=== PATIENT | female | born 1950 | race Caucasian/White ===

== ENCOUNTER → 2017-08-21 08:57 | Outpatient (CLI) | payer MEDICARE, SELFPAY ==
[2017-08-21 10:30] LABS: Absolute Lymphocyte Count 0.98 X10^3/ul (0.83-4.51); Absolute Neutrophil Count 1.9 X10^3/uL (2.0-7.7); Basophil# 0.02 X10^3/uL; Basophil% 0.6 % (0-1); Eosinophil# 0.08 X10^3/uL; Eosinophils% 2.5 % (0-5); Hematocrit 41.6 % (37-47); Hemoglobin 13.6 g/dl (12.0-15.0); Lymphocyte # 0.98 X10^3/ul (4.0); Lymphocyte % 30.1 % (19-41); Mean Corp Hgb Conc 32.7 g/gl (32-36); Mean Corpuscular Hgb 30.5 pg (27.0-32.0); Mean Corpuscular Volume 93.3 fL (81-99); Mean Platelet Vol. 9.4 fl (6.2-12.0); Monocyte# 0.29 X10^3/uL; Monocyte% 8.9 % (0-10); Neutrophil # 1.89 X10^3/uL (2.7-7.7); Neutrophil % 57.9 % (47-70); Platelet Count 171 K/mm3 (150-450); RBC Distribution Width SD 45.6 fl (35.1-43.9); Red Blood Count 4.46 M/mm3 (4.2-5.4); White Blood Count 3.3 K/mm3 (4.4-11.0)
[2017-08-21 10:44] LABS: POSITIVE COUNT NO; POSITIVE DIFFERENTIAL NO; POSITIVE MORPHOLOGY NO
[2017-08-21 10:52] LABS: ALB/GLOB Ratio 1.1 RATIO (0.9-2.4); AST(SGOT) 24 U/L (15-37); Alanine Aminotransfer ALT/SGPT 39 U/L (13-56); Albumin, Serum 3.5 g/dL (3.2-5.0); Alkaline Phosphatase 72 U/L (45-117); Anion Gap 6 (5-15); BUN 11 mg/dL (7-18); BUN/Creat Ratio 11.8 RATIO (10-20); Calcium,Total 8.9 mg/dL (8.5-10.1); Chloride 106 mmol/L (98-107); Creatinine, Serum 0.93 mg/dL (0.55-1.02); EST Glomerular Filtration Rate 63 mL/min (>60); Est Glom Filt Rate - Afr Amer 77 mL/min (>60); Globulin 3.1 g/dL (2.2-4.2); Glucose 124 mg/dL (74-106); Potassium 4.1 mmol/L (3.5-5.1); Protein, Total 6.6 g/dL (6.4-8.2); Sodium Level 144 mmol/L (136-145)
== END ==
PROVIDERS: Family Provider Family Medicine; PCP Family Medicine; Visit Provider Internal Medicine Rheumatology
DX: M06.4 Inflammatory polyarthropathy (principal); M15.9 Polyosteoarthritis, unspecified; M51.36 Other intervertebral disc degeneration, lumbar region; M50.30 Other cervical disc degeneration, unspecified cervical region; E78.5 Hyperlipidemia, unspecified
CPT/HCPCS: 36415; 80053; 85025

== ENCOUNTER → 2017-09-14 09:10 | Outpatient (CLI) | payer MEDICARE, SELFPAY ==
[2017-09-14 09:28] LABS: Erythrocyte Sedimentation Rate 6 mm/hr (0-30)
[2017-09-14 09:40] LABS: ALB/GLOB Ratio 1.1 RATIO (0.9-2.4); AST(SGOT) 25 U/L (15-37); Alanine Aminotransfer ALT/SGPT 41 U/L (13-56); Albumin, Serum 3.6 g/dL (3.2-5.0); Alkaline Phosphatase 78 U/L (45-117); Anion Gap 7 (5-15); BUN 16 mg/dL (7-18); BUN/Creat Ratio 18.6 RATIO (10-20); CRP < 2.90 mg/L (0.0-3.0); Calcium,Total 9.1 mg/dL (8.5-10.1); Chloride 106 mmol/L (98-107); Creatinine, Serum 0.86 mg/dL (0.55-1.02); EST Glomerular Filtration Rate 70 mL/min (>60); Est Glom Filt Rate - Afr Amer 85 mL/min (>60); Globulin 3.3 g/dL (2.2-4.2); Glucose 77 mg/dL (74-106); Lipase 310 U/L (73-393); Potassium 3.7 mmol/L (3.5-5.1); Protein, Total 6.9 g/dL (6.4-8.2); Sodium Level 142 mmol/L (136-145)
[2017-09-14 18:59] LABS: Absolute Lymphocyte Count 1.07 X10^3/ul (0.83-4.51); Absolute Neutrophil Count 2.8 X10^3/uL (2.0-7.7); Basophil# 0.02 X10^3/uL; Basophil% 0.4 % (0-1); Eosinophil# 0.05 X10^3/uL; Eosinophils% 1.1 % (0-5); Hematocrit 41.6 % (37-47); Hemoglobin 13.5 g/dl (12.0-15.0); Lymphocyte # 1.07 X10^3/ul (4.0); Lymphocyte % 23.7 % (19-41); Mean Corp Hgb Conc 32.5 g/gl (32-36); Mean Corpuscular Hgb 30.1 pg (27.0-32.0); Mean Corpuscular Volume 92.9 fL (81-99); Mean Platelet Vol. 9.9 fl (6.2-12.0); Monocyte# 0.55 X10^3/uL; Monocyte% 12.2 % (0-10); Neutrophil # 2.81 X10^3/uL (2.7-7.7); Neutrophil % 62.2 % (47-70); Platelet Count 170 K/mm3 (150-450); RBC Distribution Width SD 47.8 fl (35.1-43.9); Red Blood Count 4.48 M/mm3 (4.2-5.4); White Blood Count 4.5 K/mm3 (4.4-11.0)
[2017-09-14 19:04] LABS: POSITIVE COUNT NO; POSITIVE DIFFERENTIAL NO; POSITIVE MORPHOLOGY NO
== END ==
PROVIDERS: Visit Provider Family Medicine
DX: R10.30 Lower abdominal pain, unspecified (principal); R19.7 Diarrhea, unspecified
CPT/HCPCS: 80053; 83690; 85025; 85652; 86140

== ENCOUNTER → 2017-11-06 14:40 | Outpatient (CLI) | payer MEDICARE, SELFPAY ==
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
== END ==
PROVIDERS: Visit Provider Anesthesiology Pain Medicine
DX: M47.892 Other spondylosis, cervical region (principal); M50.30 Other cervical disc degeneration, unspecified cervical region; M48.02 Spinal stenosis, cervical region
CPT/HCPCS: 72040

== ENCOUNTER → 2017-12-28 07:53 | Outpatient (CLI) | payer MEDICARE, SELFPAY ==
[2017-12-28 10:05] LABS: Absolute Lymphocyte Count 1.48 X10^3/ul (0.83-4.51); Absolute Neutrophil Count 3.6 X10^3/uL (2.0-7.7); Basophil# 0.01 X10^3/uL; Basophil% 0.2 % (0-1); Eosinophil# 0.06 X10^3/uL; Eosinophils% 1.1 % (0-5); Hematocrit 44.3 % (37-47); Hemoglobin 14.2 g/dl (12.0-15.0); Lymphocyte # 1.48 X10^3/ul (4.0); Mean Corp Hgb Conc 32.1 g/gl (32-36); Mean Corpuscular Hgb 29.3 pg (27.0-32.0); Mean Corpuscular Volume 91.5 fL (81-99); Mean Platelet Vol. 9.6 fl (6.2-12.0); Monocyte# 0.57 X10^3/uL; Neutrophil # 3.57 X10^3/uL (2.7-7.7); Neutrophil % 62.7 % (47-70); Platelet Count 163 K/mm3 (150-450); RBC Distribution Width SD 47.1 fl (35.1-43.9); Red Blood Count 4.84 M/mm3 (4.2-5.4); White Blood Count 5.7 K/mm3 (4.4-11.0)
[2017-12-28 10:13] LABS: POSITIVE COUNT NO; POSITIVE DIFFERENTIAL NO; POSITIVE MORPHOLOGY NO
[2017-12-28 10:21] LABS: ALB/GLOB Ratio 1.2 RATIO (0.9-2.4); AST(SGOT) 17 U/L (15-37); Alanine Aminotransfer ALT/SGPT 38 U/L (13-56); Albumin, Serum 4.1 g/dL (3.2-5.0); Alkaline Phosphatase 79 U/L (45-117); Anion Gap 7 (5-15); BUN 19 mg/dL (7-18); BUN/Creat Ratio 21.5 RATIO (10-20); Calcium,Total 9.2 mg/dL (8.5-10.1); Chloride 105 mmol/L (98-107); Creatinine, Serum 0.88 mg/dL (0.55-1.02); EST Glomerular Filtration Rate 68 mL/min (>60); Est Glom Filt Rate - Afr Amer 82 mL/min (>60); Globulin 3.3 g/dL (2.2-4.2); Glucose 83 mg/dL (74-106); Protein, Total 7.4 g/dL (6.4-8.2); Sodium Level 141 mmol/L (136-145)
== END ==
PROVIDERS: Family Provider Family Medicine; PCP Family Medicine; Visit Provider Internal Medicine Rheumatology
DX: M06.4 Inflammatory polyarthropathy (principal); M15.9 Polyosteoarthritis, unspecified; M51.36 Other intervertebral disc degeneration, lumbar region; M50.30 Other cervical disc degeneration, unspecified cervical region; E78.5 Hyperlipidemia, unspecified
CPT/HCPCS: 36415; 80053; 85025

== ENCOUNTER 2018-01-02 18:23 | Emergency (ER) | payer MEDICARE, SELFPAY ==
[2018-01-02 18:23] VITALS: BP 156/76; PULSE 77; RESP 16; TEMP 36.2; O2SAT 99; BMI 30.2
[2018-01-02 20:15] LABS: Absolute Lymphocyte Count 1.37 X10^3/ul (0.83-4.51); Basophil# 0.01 X10^3/uL; Basophil% 0.2 % (0-1); Eosinophil# 0.05 X10^3/uL; Eosinophils% 0.8 % (0-5); Hematocrit 44.2 % (37-47); Lymphocyte # 1.37 X10^3/ul (4.0); Lymphocyte % 22.8 % (19-41); Mean Corp Hgb Conc 31.7 g/gl (32-36); Mean Corpuscular Volume 91.7 fL (81-99); Mean Platelet Vol. 9.5 fl (6.2-12.0); Monocyte# 0.61 X10^3/uL; Monocyte% 10.1 % (0-10); Neutrophil # 3.97 X10^3/uL (2.7-7.7); Neutrophil % 66.1 % (47-70); Platelet Count 169 K/mm3 (150-450); RBC Distribution Width SD 46.9 fl (35.1-43.9); Red Blood Count 4.82 M/mm3 (4.2-5.4)
[2018-01-02 20:22] LABS: Anion Gap 8 (5-15); BUN 16 mg/dL (7-18); BUN/Creat Ratio 16.5 RATIO (10-20); Chloride 108 mmol/L (98-107); Creatinine, Serum 0.97 mg/dL (0.55-1.02); EST Glomerular Filtration Rate 61 mL/min (>60); Est Glom Filt Rate - Afr Amer 73 mL/min (>60); Estimated Creatinine Clearance 41.89 ml/min; Glucose 97 mg/dL (74-106); Potassium 4.2 mmol/L (3.5-5.1); Sodium Level 143 mmol/L (136-145)
[2018-01-02 20:24] LABS: POSITIVE COUNT NO; POSITIVE DIFFERENTIAL NO; POSITIVE MORPHOLOGY NO
[2018-01-02] MEDS: Dicyclomine 10 MG Capsule 20 MG PO (20:24)
[2018-01-02] MEDS: Ondansetron 4 MG/2 ML Vial IV (20:24)
[2018-01-02] MEDS: 0.9% Normal Saline 1,000 ML 150 ML IV (20:24)
[2018-01-02 20:26] VITALS: BP 127/87; PULSE 67; RESP 16; O2SAT 98
[2018-01-02 20:26] LABS: Mucous, Urine 0 SEEN /hpf (<or=2+)
[2018-01-02 20:29] LABS: Color, Urine Yellow (Yellow); Glucose, Dipstick Normal (Normal); Ketone-Dipstick Negative (Negative); Leukocyte Esterase-Dipstick 100 /ul (Negative); Nitrite-Dipstick Negative (Negative); Occult Blood-Urine 25 /ul (Negative); Protein-Dipstick Negative (Negative); Urine Bilirubin Dipstick Negative (Negative); Urine Clarity Clear (Clear); Urine Urobilinogen Normal (Normal)
[2018-01-02 20:51] LABS: Red Blood Cells-Urine 0-5 SEEN /hpf (0-5); Squamous Epithelial Cells - UA 0-5 SEEN /hpf (5-10); White Blood Cells 5-10 SEEN /hpf (0-5)
[2018-01-02 20:52] LABS: Bacteria RARE /hpf (None Seen)
[2018-01-02 22:37] VITALS: BP 120/72; PULSE 69; RESP 16; O2SAT 97
--- NOTE | 2018-01-02 23:07 | ED.VISSUMM ---
- ER Visit Summary Date of Service: 01/02/18 Chief Complaint: Abdominal pain, diarrhea History of Present Illness: The patient is a 67 F with generalized abdominal pain which she describes as aching and cramping for the past 4 days. She reports some mild nausea. She has had diarrhea for the past 4 days as well, nonbloody. Patient states she has hot flashes but she does not believe she is having true fevers. She has not had recent antibiotics or travel. She has not been camping. Physical Examination: Vital signs are unremarkable. Patient sitting upright in bed no acute distress. She is nontoxic appearing. Head and neck examination is unremarkable. Heart is regular rate and rhythm. Lung sounds are clear. Abdomen is soft with minimal diffuse tenderness. No guarding or rebound. Hypoactive bowel sounds noted throughout. Test Results: CBC and chemistry studies normal. Urinalysis does show 5-10 white cells with rare bacteria. Emergency Department Course and Treatment: Patient is given IV fluids, Zofran, and Bentyl. On repeat evaluation she does have some improvement in her symptoms. I advised the patient she does have changes consistent with cystitis. This can trigger diarrhea. She be treated with 3 day course of Bactrim. She will also be written for Zofran, Bentyl, and Imodium. If her symptoms worsen, she develops bloody diarrhea, vomiting, or fever she is to return for repeat evaluation. Treatment Plan: [] Disposition: Discharge Impression: 1. Diarrhea 2. Cystitis This note was generated with [employer], [employer] dictation software. It may contain incorrect words, spelling, and punctuation that were not noted in review of the chart prior to signing ED Disposition - Plan for ED Patient: Disposition: Home or Assisted Living Chief Complaint: Abd Pain Instructions: ED Diarrhea Viral, ED UTI Cystitis Female Prescriptions: Loperamide [Imodium] 2 mg PO Q6H PRN PRN #14 capsule PRN Reason: Diarrhea Ondansetron [Zofran Odt] 4 mg PO Q8H PRN PRN #10 tablet PRN Reason: Nausea Dicyclomine HCl [Bentyl] 20 mg PO TIDAC #20 capsule Smz/Tmp Ds [Bactrim Ds] 1 tablet PO BID #6 tablet Referrals: Baljinder Mckenna MD [Primary Care Provider] - 5-7 Days
[2018-01-02] MEDS: Ondansetron ODT 4 MG Tablet PO (23:23)
[2018-01-02] MEDS: Smz/Tmp Ds Tablet 1 TABLET PO (23:23)
== END 2018-01-02 23:26 | disposition home or self-care (01) ==
PROVIDERS: Emergency Provider Emergency Medicine; Family Provider Family Medicine; PCP Family Medicine
DX: N30.20 Other chronic cystitis without hematuria (principal); B96.89 Other specified bacterial agents as the cause of diseases classified elsewhere; R19.7 Diarrhea, unspecified; E78.00 Pure hypercholesterolemia, unspecified; Z79.899 Other long term (current) drug therapy
CPT/HCPCS: 80048; 81001; 85025; 96361; 96374; 99284; J7030; J2405

== ENCOUNTER → 2018-06-24 11:20 | Outpatient (CLI) | payer MEDICARE, SELFPAY ==
[2018-06-24 11:47] LABS: Amphetamine Urine VISTA NEGATIVE (<1000 ng/mL); Barbiturate Urine VISTA NEGATIVE (< 200 ng/mL); Benzodiazepine Urine VISTA NEGATIVE (< 200 ng/mL); Cocaine Urine VISTA NEGATIVE (< 300 ng/mL); Ecstacy Urine VISTA NEGATIVE (< 500 ng/mL); Methadone Urine VISTA NEGATIVE (< 300 ng/mL); PCP Urine VISTA NEGATIVE (< 25 ng/mL); THC Urine VISTA NEGATIVE (< 50 ng/mL); Vista UDS pH Range 5
== END ==
PROVIDERS: Family Provider Family Medicine; PCP Family Medicine; Referring Provider Anesthesiology Pain Medicine; Visit Provider Anesthesiology Pain Medicine
DX: F11.20 Opioid dependence, uncomplicated (principal)
CPT/HCPCS: 80307

== ENCOUNTER → 2018-12-13 07:18 | Outpatient (CLI) | payer MEDICARE, SELFPAY ==
[2018-12-13 10:25] LABS: Erythrocyte Sedimentation Rate 5 mm/hr (0-30)
[2018-12-13 10:27] LABS: Absolute Lymphocyte Count 1.26 X10^3/uL (0.83-4.51); Absolute Neutrophil Count 2.3 X10^3/uL (2.0-7.7); Basophil# 0.03 X10^3/uL; Basophil% 0.7 % (0-1); Eosinophils% 2.4 % (0-5); Hematocrit 45.9 % (37-47); Hemoglobin 14.7 g/dL (12.0-15.0); Lymphocyte # 1.26 X10^3/ul (4.0); Lymphocyte % 30.3 % (19-41); Mean Corpuscular Hgb 29.8 pg (27.0-32.0); Mean Corpuscular Volume 93.1 fL (81-99); Mean Platelet Vol. 9.6 fl (6.2-12.0); Monocyte# 0.44 X10^3/uL; Monocyte% 10.6 % (0-10); NRBC Flagged by Analyzer 0 % (0-5); Neutrophil # 2.32 X10^3/uL (2.7-7.7); Neutrophil % 55.8 % (47-70); Platelet Count 159 K/mm3 (150-450); RBC Distribution Width CV 12.1 % (11.6-14.6); Red Blood Count 4.93 M/mm3 (4.2-5.4); White Blood Count 4.2 K/mm3 (4.4-11.0)
[2018-12-13 10:46] LABS: AST(SGOT) 25 U/L (15-37); Alanine Aminotransfer ALT/SGPT 35 U/L (13-56); Albumin, Serum 3.6 g/dL (3.2-5.0); Alkaline Phosphatase 88 U/L (45-117); Anion Gap 5 (5-15); BUN 10 mg/dL (7-18); BUN/Creat Ratio 12.7 RATIO (10-20); CRP < 2.90 mg/L (0.0-3.0); Calcium,Total 9.2 mg/dL (8.5-10.1); Chloride 107 mmol/L (98-107); Creatinine, Serum 0.79 mg/dL (0.55-1.02); EST Glomerular Filtration Rate 77 mL/min (>60); Est Glom Filt Rate - Afr Amer 93 mL/min (>60); Globulin 3.5 g/dL (2.2-4.2); Glucose 84 mg/dL (74-106); Potassium 4.3 mmol/L (3.5-5.1); Protein, Total 7.1 g/dL (6.4-8.2); Sodium Level 143 mmol/L (136-145)
== END ==
PROVIDERS: Family Provider Family Medicine; PCP Family Medicine; Referring Provider Internal Medicine Rheumatology; Visit Provider Internal Medicine Rheumatology
DX: M06.4 Inflammatory polyarthropathy (principal); M15.9 Polyosteoarthritis, unspecified; M51.36 Other intervertebral disc degeneration, lumbar region; M50.30 Other cervical disc degeneration, unspecified cervical region; E78.5 Hyperlipidemia, unspecified
CPT/HCPCS: 36415; 80053; 85025; 85652; 86140

== ENCOUNTER → 2019-05-13 14:18 | Outpatient (CLI) | payer MEDICARE, SELFPAY ==
[2019-05-13 15:24] LABS: Absolute Lymphocyte Count 1.51 X10^3/uL (0.83-4.51); Absolute Neutrophil Count 2.4 X10^3/uL (2.0-7.7); Basophil# 0.03 X10^3/uL; Basophil% 0.7 % (0-1); Eosinophil# 0.06 X10^3/uL; Eosinophils% 1.4 % (0-5); Hematocrit 45.6 % (37-47); Hemoglobin 14.6 g/dL (12.0-15.0); Lymphocyte # 1.51 X10^3/ul (4.0); Lymphocyte % 34.5 % (19-41); Mean Corpuscular Hgb 30.4 pg (27.0-32.0); Mean Platelet Vol. 9.3 fl (6.2-12.0); Monocyte# 0.33 X10^3/uL; Monocyte% 7.5 % (0-10); NRBC Flagged by Analyzer 0 % (0-5); Neutrophil # 2.44 X10^3/uL (2.7-7.7); Neutrophil % 55.7 % (47-70); Platelet Count 147 K/mm3 (150-450); RBC Distribution Width SD 42.5 fl (35.1-43.9); White Blood Count 4.4 K/mm3 (4.4-11.0)
[2019-05-13 15:57] LABS: ALB/GLOB Ratio 1.2 RATIO (0.9-2.4); AST(SGOT) 18 U/L (15-37); Alanine Aminotransfer ALT/SGPT 40 U/L (13-56); Albumin, Serum 3.7 g/dL (3.2-5.0); Alkaline Phosphatase 73 U/L (45-117); Anion Gap 3 (5-15); BUN 13 mg/dL (7-18); BUN/Creat Ratio 14.5 RATIO (10-20); Calcium,Total 8.8 mg/dL (8.5-10.1); Chloride 107 mmol/L (98-107); EST Glomerular Filtration Rate 66 mL/min (>60); Est Glom Filt Rate - Afr Amer 80 mL/min (>60); Globulin 3.1 g/dL (2.2-4.2); Glucose 138 mg/dL (74-106); Potassium 3.6 mmol/L (3.5-5.1); Protein, Total 6.8 g/dL (6.4-8.2); Sodium Level 140 mmol/L (136-145)
== END ==
PROVIDERS: Family Provider Family Medicine; PCP Family Medicine; Referring Provider Internal Medicine Rheumatology; Visit Provider Internal Medicine Rheumatology
DX: M06.4 Inflammatory polyarthropathy (principal); M15.9 Polyosteoarthritis, unspecified; M51.36 Other intervertebral disc degeneration, lumbar region; M50.30 Other cervical disc degeneration, unspecified cervical region; E78.5 Hyperlipidemia, unspecified
CPT/HCPCS: 36415; 80053; 85025

== ENCOUNTER → 2019-07-18 10:10 | Outpatient (CLI) | payer MEDICARE, SELFPAY ==
--- NOTE | 2019-07-18 | LES_PTH ---
PATIENT: SONI LOGAN LOC: [facility] U#:[id number] AGE/SX: 74/F ROOM: RE07/18/[address]: Dr. Chasity Wagner MD : [id number] BED: DIS: SPEC #: [id number] RECD: 07/22/19 10:10 STATUS: LIZBET LAVON #: [id number] [place]: 07/18/19 00:[address]: Chasity Wagner DEPT: SURGICAL PATHOLOGY RECD BY: Susannah Carmona ENTERED: 07/22/19 10:51 SP TYPE: Lesion OTHR DR: Dr. 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 AM:kiesha 07/23/19 MICROSCOPIC DESCRIPTION Slides are reviewed. GROSS DESCRIPTION Received in fixative is one container labeled with the patient's name and designated RLL. The specimen consists of a piece of carter-white skin measuring 0.4 x 0.3 x 0.2 cm. The entire specimen is submitted in one cassette. / SJ:kiesah 07/22/19 TC:1 CPT: 67954
== END ==
PROVIDERS: PCP Family Medicine; Referring Provider Family Medicine; Visit Provider Family Medicine
DX: H02.9 Unspecified disorder of eyelid (principal)
CPT/HCPCS: 88305

== ENCOUNTER → 2019-10-21 10:41 | Outpatient (CLI) | payer MEDICARE, SELFPAY ==
[2019-10-21 11:22] LABS: Amphetamine Urine VISTA NEGATIVE (<1000 ng/mL); Barbiturate Urine VISTA NEGATIVE (< 200 ng/mL); Benzodiazepine Urine VISTA NEGATIVE (< 200 ng/mL); Cocaine Urine VISTA NEGATIVE (< 300 ng/mL); Ecstacy Urine VISTA NEGATIVE (< 500 ng/mL); Methadone Urine VISTA NEGATIVE (< 300 ng/mL); PCP Urine VISTA NEGATIVE (< 25 ng/mL); THC Urine VISTA NEGATIVE (< 50 ng/mL); Vista UDS pH Range 5
== END ==
PROVIDERS: PCP Family Medicine; Referring Provider Anesthesiology Pain Medicine; Visit Provider Anesthesiology Pain Medicine
DX: F11.20 Opioid dependence, uncomplicated (principal)
CPT/HCPCS: 80307

== ENCOUNTER 2020-02-27 10:51 | Emergency (ER) | payer MEDICARE, SELFPAY ==
[2020-02-27 10:52] VITALS: BP 189/106; PULSE 73; RESP 16; TEMP 36.4; O2SAT 99; BMI 30.8
--- NOTE | 2020-02-27 11:39 | ED.DCSUM_ITS ---
History of Present Illness Chief Complaint: Hypertension Detail of Chief Complaint: Retro-orbital pain, frequency and dizziness Informant: Patient Onset: Yesterday Context: Sudden Onset Timing: Intermittent Quality: Orbital pain, orthostatic and frequency Location: Multiple Current Severity: - - The retro-orbital pain has resolved. The frequency has not. The orthostatic symptoms have not. Maximum Severity: Severe Worsened by: Orthostatic symptoms Relieved by: Nothing Associated Symptoms: No constitutional symptoms Narrative: Patient is a 69-year-old woman who presents because of retro-orbital eye pain yesterday. Denies photophobia. Denies headache. Denies neck pain or neck stiffness. She denies paresthesia, anesthesia or motor weakness. She denies rhinorrhea. She has mild congestion. She denies sore throat. Denies cough or shortness of breath. She denies nausea, vomiting diarrhea. She does report frequency without urgency, hematuria or dysuria. She has not noted a rash. She states she had problems walking when she was lightheaded with standing. She denies vertigo. She denies trouble with speech or swallowing. She denies cardiac or respiratory symptoms. Prior similar symptoms: No Recent Illness/Hospitalization: No - Past Medical History (1) Lumbosacral spondylolysis Status: Chronic (2) Osteoporosis Status: Chronic (3) Pure hypercholesterolemia Status: Chronic Past Medical History - Allergies and Home Meds Allergies/Adverse Reactions: Allergies Unable to Assess Allergy (Verified 02/27/20 10:51) Primary Care Physician: Baljinder Mckenna MD [Primary Care Provider] - Surgical History: noncontributory Lives: Alone Smoking Status: Never smoker Alcohol: None Drugs: None Review of Systems General: Denies: Chills, Fever, Malaise, Subjective, Sweats Eyes: Denies: Visual changes - bilaterally, Blurred Vision - bilaterally, Diplopia ENT: Denies: Bilateral ear pain, Sore throat Cardiovascular: Denies: Chest pain, Palpitations Respiratory: Denies: Dyspnea, Cough, Sputum, Dyspnea on exertion, Orthopnea Gastrointestinal: Denies: Abdominal pain, Nausea, Vomiting, Diarrhea Genitourinary: Reports: Frequency. Denies: Dysuria, Hematuria Musculoskeletal: Denies: Myalgias, Arthralgias, Neck pain, Back pain, Swelling, Extremity Pain Skin: Denies: Rash, Wounds Neurological: Reports: Weakness. Denies: Headache, Parasthesia, Numbness Endocrine: Denies: Polyuria, Polydipsia Hematologic: Denies: Easy bruising, Easy bleeding Physical Exam Vital Signs/Narrative: Vital Signs Temp Pulse Resp BP Pulse Ox 02/27/20 10:52 97.6 F L 73 16 189/106 H 99 Inital Vital Signs reviewed: Yes General: Well nourished, Well developed, No Acute Distress Head: Normocephalic, Atraumatic Eyes: Perrl, EOMI. Negative for: Pale conjunctiva, Scleral icterus ENT: No rhinorrhea, Dry mucous membranes Neck: Supple, Nontender, No lymphadenopathy, No JVD Cardiovascular: Regular rate, Regular rhythm, No murmurs, Normal S1, Normal S2 Respiratory: No distress, CTA bilaterally, Chest nontender Abdomen: Soft, Nontender, Nondistended, Normal bowel sounds Back: Nontender, Normal Inspection. Negative for: CVA tenderness Extremities: Nontender, No edema Skin: Normal color, No rash Neurological: Alert, Oriented x3, Cranial nerves II-XII grossly intact, Normal Strength, Normal Sensation Psychological: Normal affect, Normal Mood Diagnostic/Tx/Re-eval Laboratory Results 02/27/20 02/27/20 02/27/20 11:40 11:43 11:43 WBC 4.5 RBC 5.34 Hgb 15.7 H Hct 49.2 H MCV 92.1 MCH 29.4 MCHC 31.9 L RDW Std Deviation 44.0 H RDW Coeff of Marjorie 13.1 Plt Count 168 MPV 8.9 Immature Gran % (Auto) 0.400 Neut % (Auto) 60.4 Lymph % (Auto) 28.3 [place] % (Auto) 8.9 Eos % (Auto) 1.3 Baso % (Auto) 0.7 Absolute Neuts (auto) 2.7 Absolute Lymphs (auto) 1.27 Nucleated RBC % 0 Sodium 140 Potassium 3.6 Chloride 104 Carbon Dioxide 32.0 Anion Gap 4 L BUN 13 Creatinine 0.80 Estim Creat Clear Calc 49.38 Est GFR (MDRD) Af Amer 90 Est GFR (MDRD) Non-Af 75 BUN/Creatinine Ratio 16.1 Glucose 85 Calcium 9.7 Urine Color STRAW Urine Clarity Clear Urine pH 7.0 Ur Specific [place] 1.010 Urine Protein Negative Urine Glucose (UA) Normal Urine Ketones Negative Urine Occult Blood Negative Urine Nitrite Negative Urine Bilirubin Negative Urine Urobilinogen Normal Ur Leukocyte Esterase Negative Urine RBC 0 SEEN Urine WBC 0 SEEN Ur Squamous Epith Cells 0 SEEN Urine Bacteria 0 SEEN Urine Mucus 0 SEEN There is a significant drop in systolic blood pressure however there is not a concomitant rise in heart rate. Patient's urine is unremarkable. Patient did receive a liter of normal saline wide open. Plan is to discharge to home. - Medical Decision Making With frequency need to rule out urinary tract infection. Orthostatic vital signs were ordered. She received a liter of fluids as clinically she is dehydrated. ED Disposition - Plan for ED Patient: Disposition: Home or Assisted Living Diagnosis: Orthostatic hypotension, Frequency of micturition Instructions: ED Hypotension Orthostatic Referrals: Baljinder Mckenna MD [Primary Care Provider] - 3-5 Days if not improving
[2020-02-27 12:07] LABS: Absolute Lymphocyte Count 1.27 X10^3/uL (0.83-4.51); Absolute Neutrophil Count 2.7 X10^3/uL (2.0-7.7); Basophil# 0.03 X10^3/uL; Basophil% 0.7 % (0-1); Eosinophil# 0.06 X10^3/uL; Eosinophils% 1.3 % (0-5); Hematocrit 49.2 % (37-47); Hemoglobin 15.7 g/dL (12.0-15.0); Lymphocyte # 1.27 X10^3/ul (4.0); Lymphocyte % 28.3 % (19-41); Mean Corp Hgb Conc 31.9 g/dL (32-36); Mean Corpuscular Hgb 29.4 pg (27.0-32.0); Mean Corpuscular Volume 92.1 fL (81-99); Mean Platelet Vol. 8.9 fl (6.2-12.0); Monocyte% 8.9 % (0-10); NRBC Flagged by Analyzer 0 % (0-5); Neutrophil # 2.71 X10^3/uL (2.7-7.7); Neutrophil % 60.4 % (47-70); Platelet Count 168 K/mm3 (150-450); RBC Distribution Width CV 13.1 % (11.6-14.6); Red Blood Count 5.34 M/mm3 (4.2-5.4); White Blood Count 4.5 K/mm3 (4.4-11.0)
[2020-02-27 12:16] LABS: Anion Gap 4 (5-15); BUN 13 mg/dL (7-18); BUN/Creat Ratio 16.1 RATIO (10-20); Calcium,Total 9.7 mg/dL (8.5-10.1); Chloride 104 mmol/L (98-107); EST Glomerular Filtration Rate 75 mL/min (>60); Est Glom Filt Rate - Afr Amer 90 mL/min (>60); Estimated Creatinine Clearance 49.38 ml/min; Glucose 85 mg/dL (74-106); Potassium 3.6 mmol/L (3.5-5.1); Sodium Level 140 mmol/L (136-145)
[2020-02-27 12:52] VITALS: BP 141/86; PULSE 64; RESP 16
[2020-02-27] MEDS: 0.9% Normal Saline 1,000 ML 1000 ML IV (12:52)
[2020-02-27 13:20] VITALS: BP 157/93; BP 179/92; BP 181/86; PULSE 63; PULSE 65; PULSE 84
[2020-02-27 14:05] LABS: Bacteria 0 SEEN /hpf (None Seen); Glucose, Dipstick Normal (Normal); Ketone-Dipstick Negative (Negative); Leukocyte Esterase-Dipstick Negative /ul (Negative); Mucous, Urine 0 SEEN /hpf (<or=2+); Nitrite-Dipstick Negative (Negative); Occult Blood-Urine Negative /ul (Negative); Protein-Dipstick Negative (Negative); Red Blood Cells-Urine 0 SEEN /hpf (0-5); Squamous Epithelial Cells - UA 0 SEEN /hpf (5-10); Urine Bilirubin Dipstick Negative (Negative); Urine Clarity Clear (Clear); Urine Urobilinogen Normal (Normal); White Blood Cells 0 SEEN /hpf (0-5)
[2020-02-27 14:13] LABS: Color, Urine STRAW (Yellow)
--- NOTE | 2020-02-27 15:16 | ED.RN ---
THIS NURSE REVIEWED D/C INSTRUCTIONS WITH PT. PT VERBALIZED UNDERSTANDING OF INSTRUCTIONS. IV D/C. IV CATHETER INTACT . PT TOLERATED WELL. PT QUESTIONING IF SHE SHOULD STILL TAKE HER HCTZ. PER DR KOTHARI, PT TO CONTINUE TAKING THE MEDICATION. PT DENIES FURTHER NEEDS OR QUESTIONS AT THIS TIME. PT AMBULATES FROM ROOM ON OWN WITHOUT ASSISTANCE FROM STAFF
== END 2020-02-27 15:24 | disposition home or self-care (01) ==
PROVIDERS: Emergency Provider Emergency Medicine; PCP Family Medicine
DX: I95.1 Orthostatic hypotension (principal); R35.0 Frequency of micturition
CPT/HCPCS: 80048; 81001; 85025; 99284; J7030; A4216

== ENCOUNTER → 2020-09-04 08:08 | Outpatient (CLI) | payer MEDICARE, SELFPAY ==
--- NOTE | 2020-09-04 08:08 | MRI_ITS ---
STUDY: MRI LUMBAR SPINE WITHOUT CONTRAST REASON FOR EXAM: Female, 70 years old. chronic low back pain with fall hitting butt 2 years ago, pain low back into bilat posterior pelvis/tailbone TECHNIQUE: Standardized fat and water weighted pulse sequences were obtained in the sagittal and axial planes. was administered for the contrast portion of the examination. COMPARISON: 23 August 2020, 12 February 2013, 10 March 2008 FINDINGS: T11-T12: Degenerated endplates. Normal disc height, hydration and morphology. Normal bilateral facet joints. Normal central canal and bilateral lateral recesses. Normal bilateral intervertebral neural foramina. T12-L1: Degenerated endplates. Normal disc height, hydration and morphology. Normal bilateral facet joints. Normal central canal and bilateral lateral recesses. Normal bilateral intervertebral neural foramina. Normal lumbar lordosis with stable grade 1 anterolisthesis of L3 on L4, less than 2 mm and stable since 2012. There is no substantial scoliosis. Normal conus medullaris that terminates at the L1-2: Normal endplates. Normal disc height, hydration and morphology. Normal bilateral facet joints. Normal central canal and bilateral lateral recesses. Normal bilateral intervertebral neural foramina. L2-3: Normal endplates. Decreased disc height, altered hydration and degenerative morphology. Mildly degenerated bilateral facet joints. Mild to moderate central canal stenosis and patent bilateral lateral recesses. There is moderate bilateral foraminal stenosis L3-4: Normal endplates. Decreased disc height, altered hydration and degenerative morphology. There is ligamentum flavum thickening. Moderately degenerated bilateral facet joints. Canal is severely stenotic. Lateral recesses are patent. There is moderate bilateral foraminal stenosis. L4-5: Normal endplates. Normal disc height, hydration and degenerated morphology. Degenerated bilateral facet joints. Mild to moderate canal stenosis and lateral recess stenosis. Moderate left and mild right foraminal stenosis. L5-S1: Degenerated endplates. Decreased disc height, hydration and degenerative morphology. Normal bilateral facet joints. Normal central canal and moderate bilateral lateral recesses. There is moderate bilateral foraminal stenosis. Normal visualized sacral ala. Normal visualized paraspinous soft tissue structures. Degenerative change has progressed since 2007 over the course of 12 years. MRI/Spine Lumbar (Routine) IMPRESSION: Severe L3-L4 spondylotic thecal sac stenosis, mild to moderate at L4-L5 and L2-L3. Neurosurgical consultation is advised. Multilevel moderate bilateral foraminal stenosis. Grade 1 L3-L4 anterolisthesis, stable since 2007. Electronically Signed: Erica Patel MD at 18:08 EDT Tel , Service support ,
== END ==
PROVIDERS: PCP Family Medicine; Referring Provider Orthopaedic Surgery; Visit Provider Orthopaedic Surgery
DX: M43.10 Spondylolisthesis, site unspecified (principal)
CPT/HCPCS: 72148

== ENCOUNTER → 2020-11-16 15:29 | Outpatient (CLI) | payer MEDICARE, SELFPAY ==
[2020-09-20 07:54] VITALS: BMI 30.8
--- NOTE | 2020-11-16 15:40 | RAD_ITS ---
STUDY: X-RAY - PELVIS AND BILATERAL HIPS REASON FOR EXAM: Female, 70 years old. Hip pain. TECHNIQUE: AP view of the pelvis.? 2 views of the right hip, and 2 views of the left hip were obtained. COMPARISON: 11/13/2016. FINDINGS: There is a non-specific bowel gas pattern. Phleboliths. Mild generalized osteopenia. Stable mild arthrosis of the sacroiliac joints. Normal bilateral superior and inferior pubic rami. Moderate arthrosis of the symphysis pubis unchanged. Normal bilateral ischial tuberosities. Mild arthrosis of both hips unchanged. RAD/Hips B/L min 2 views w/ Pelvis IMPRESSION: Osteopenia with stable mild arthrosis of the sacroiliac joints, moderate arthrosis of the symphysis pubis and mild arthrosis of both hips. No acute abnormality, erosive changes or periostitis. Electronically Signed: Markos Hernandez MD at 13:32 EDT , Service support ,
== END ==
PROVIDERS: PCP Family Medicine; Referring Provider Anesthesiology Pain Medicine; Visit Provider Anesthesiology Pain Medicine
DX: M25.559 Pain in unspecified hip (principal)
CPT/HCPCS: 73521

== ENCOUNTER 2021-02-10 22:42 | Emergency (ER) | payer MEDICARE, SELFPAY ==
[2021-02-10 22:46] VITALS: BP 115/66; PULSE 88; RESP 18; TEMP 37.2; O2SAT 96; BMI 28.9
[2021-02-10 22:53] VITALS: O2SAT 97
--- NOTE | 2021-02-10 23:05 | EX.ED.DYSGE1 ---
HPI History of Present Illness Chief Complaint: General Illness Informant: patient Narrative Narrative: 70-year-old female states that she is Covid positive. She tells me that her daughter and her daughter's friend who is a nurse felt that 90 and 90 were too close together and brought her to the emergency room. She cannot tell me what 99 blood work. She tells me that she has a pulse oximeter that she got today. She was 96% in triage and 93% with oxygenation. Heart rate of 88. At rest in the room she is a 83 heart rate. She states her symptoms of Covid include eye pain. She does not feel short of breath no shortness of breath with exertion. No vomiting or diarrhea. She denies any fever but notes hot and cold flashes. She is Covid vaccinated. PFSH PFSH Home Medications baclofen 20 mg PO BID 01/02/18 [History Last Taken Unknown] calcium citrate-vitamin D3 1 each PO DAILY 01/02/18 [History Last Taken Unknown] cholecalciferol (vitamin D3) 2,000 unit PO DAILY 01/02/18 [History Last Taken Unknown] pantoprazole 40 mg PO DAILY 01/02/18 [History Last Taken Unknown] pregabalin 300 mg PO QHS 01/02/18 [History Last Taken Unknown] pyridoxine (vitamin B6) 100 mg PO DAILY 01/02/18 [History Last Taken Unknown] tramadol 50 mg PO BID 01/02/18 [History Last Taken Unknown] lisinopril 10 mg tablet 10 mg PO DAILY 08/23/20 [History Last Taken Unknown] Allergy/AdvReac Type Severity Reaction Status Date / Time No Known Allergies Allergy Verified 09/20/20 08:00 Social History (Updated 02/10/21 @ 23:[address] Quoc Tejeda, DO) Smoking Status: Never smoker substance use type: does not use ROS ROS ED ROS Narrative Chronic body pain Constitutional Constitutional ED: Reports chills and other Details: Hot flashes ; Denies weight loss Eyes Eyes: Reports other Details: Eye pain ; Denies change in vision or diplopia ENT ENT ED: Denies ear pain, rhinorrhea or sore throat Cardiovascular Cardiovascular: Denies chest pain, orthopnea, palpitations or racing heartbeat Respiratory/Chest Respiratory/Chest: Denies cough, dyspnea or orthopnea Gastrointestinal Gastrointestinal: Denies abdominal pain, diarrhea, nausea or vomiting Genitourinary Genitourinary ED: Denies dysuria, hematuria or urinary frequency Musculoskeletal Musculoskeletal: Denies arthralgias or myalgias Integumentary Denies abscess or rash Neurologic Neurologic: Denies headache(s) or weakness Psychiatric Psychiatric: Denies anxiety, depression, suicidal ideation or suicidal thoughts Endocrine Endocrinology: Denies polydipsia, polyphagia or polyuria Allergic/Immunologic Allergic/Immunologic ED: Denies mouth swelling, tongue swelling or urticaria EXAM Physical Exam Const Vital Signs: 02/10/21 22:46 Temperature 98.9 F Temperature Source Temporal Pulse Rate 88 Respiratory Rate 18 Blood Pressure 115/66 Blood Pressure Mean 82 Pulse Ox 96 Oxygen Delivery Method Room Air Positive well nourished and well developed General Appearance ED: well developed HEENT Reports normocephalic, head/scalp atraumatic and moist mucous membranes Eyes PERRL and EOMs intact bilaterally Neck no lymphadenopathy, supple and no JVD Resp normal respiratory effort and clear to auscultation bilaterally Cardio regular rate, regular rhythm and no murmurs GI normal to inspection, nondistended, normoactive bowel sounds and non-tender Palpation: soft Back/Spine no CVA tenderness and normal ROM Extremity normal to inspection General Extremety ED: Negative for edema General Extremity: Negative for edema Neuro oriented x3 and CN's II-XII intact bilaterally Sensorium / Orientation: alert Motor Exam: strength 5/5 throughout Psych mental status grossly normal Mood & Affect: Negative for depressed or tearful Skin no rashes or lesions noted and no wounds MDM MDM MDM Narrative Medical decision making narrative: Patient is not hypoxic at rest. She is not hypoxic with exertion. Her lung sounds are clear. She does not appear symptomatic from a pulmonary standpoint. Patient can be discharged home with continued observation return if worsening or concerns Discharge Plan Triage Chief Complaint: General Illness ED Provider: Quoc Tejeda Dx/Rx/DC Orders Clinical Impression: COVID-19 Instructions: Coronavirus Disease 2019 (COVID-19): Caring for Yourself or Others Prescriptions: No Action lisinopril 10 mg tablet 10 mg PO DAILY RF: 0 tramadol 50 MG tablet 50 mg PO BID RF: 0 baclofen 20 MG tablet 20 mg PO BID RF: 0 pantoprazole 40 MG tablet 40 mg PO DAILY RF: 0 pyridoxine (vitamin B6) 50 MG tablet 100 mg PO DAILY RF: 0 pregabalin 300 MG capsule 300 mg PO QHS RF: 0 cholecalciferol (vitamin D3) 2,000 UNIT capsule 2,000 unit PO DAILY RF: 0 calcium citrate-vitamin D3 1 EACH tablet 1 each PO DAILY RF: 0 Primary Care Provider: Baljinder Mckenna Referrals: Baljinder Mckenna MD [Primary Care Provider] - As Needed Disposition Disposition: Home, Self Care
[2021-02-10 23:22] VITALS: BP 120/81; PULSE 88; RESP 18; O2SAT 95
== END 2021-02-10 23:23 | disposition home or self-care (01) ==
LOC: ED 23:16
PROVIDERS: Emergency Provider Emergency Medicine; PCP Family Medicine
DX: U07.1 COVID-19 (principal)
CPT/HCPCS: 99282

== ENCOUNTER → 2023-02-14 | Outpatient (CLI) | payer MEDICARE, SELFPAY ==
[2023-02-14 12:46] LABS: Amphetamine Urine VISTA NEGATIVE (<1000 ng/mL); Barbiturate Urine VISTA NEGATIVE (< 200 ng/mL); Benzodiazepine Urine VISTA NEGATIVE (< 200 ng/mL); Cocaine Urine VISTA NEGATIVE (< 300 ng/mL); Ecstacy Urine VISTA NEGATIVE (< 500 ng/mL); Methadone Urine VISTA NEGATIVE (< 300 ng/mL); PCP Urine VISTA NEGATIVE (< 25 ng/mL); THC Urine VISTA NEGATIVE (< 50 ng/mL); Vista UDS pH Range 5
== END | disposition home or self-care (01) ==
PROVIDERS: PCP Family Medicine; Visit Provider Anesthesiology Pain Medicine
DX: F11.20 Opioid dependence, uncomplicated (principal)
CPT/HCPCS: 80307

== ENCOUNTER → 2023-04-03 | Outpatient (CLI) | payer MEDICARE, SELFPAY ==
--- NOTE | 2023-04-03 12:34 | MRI_ITS ---
INDICATION: Low back pain radiating into buttocks, no history of surgery EXAMINATION: MRI - MR Spine Lumbar W/O Contrast TECHNIQUE: Multiplanar and multisequence MR images of the lumbar spine. IV Contrast Dosage and Agent: None. COMPARISON: 09/04/2020 FINDINGS: VERTEBRAE: Vertebral body heights are preserved. No acute fracture or pathologic marrow replacement. VERTEBRAL ALIGNMENT: Stable 3 mm spondylolisthesis L3-4 and L4-5. There is preservation of the normal lumbar lordosis. CORD: Normal position and signal intensity of the conus medullaris. L1/L2: Normal disc height and morphology. Normal spinal canal, lateral recesses and neuroforamina. L2/L3: Loss of disc height. Bilateral facet joint hypertrophy. Mild central and moderate bilateral foraminal stenosis. L3/L4: Loss of disc height. Circumferential annular bulge and facet joint hypertrophy produce moderately severe central stenosis. Moderate bilateral foraminal stenosis. L4/L5: Loss of disc height. Bilateral facet joint hypertrophy and circumferential annular bulge produces severe central and moderate bilateral foraminal stenosis. L5/S1: Severe loss of disc height. 4 mm posteriorly bulging disc encroaches on the thecal sac producing moderate central stenosis. Moderate bilateral foraminal stenosis. SOFT TISSUES: Unremarkable. MRI/Spine Lumbar (Routine) IMPRESSION: Multilevel degenerative disc changes with central and foraminal stenoses as above. Posterior disc bulge at L5-S1 has increased and produces moderate central stenosis. Electronically Signed: James Sanders MD at 22:21 EST ,
== END | disposition home or self-care (01) ==
PROVIDERS: PCP Internal Medicine; Referring Provider Orthopaedic Surgery; Visit Provider Orthopaedic Surgery
DX: M48.061 Spinal stenosis, lumbar region without neurogenic claudication (principal)
CPT/HCPCS: 72148

== ENCOUNTER → 2023-04-09 | Outpatient (CLI) | payer MEDICARE, SELFPAY ==
--- NOTE | 2023-04-09 08:00 | MRI_ITS ---
EXAM: MR CERVICAL SPINE WITHOUT INTRAVENOUS CONTRAST CLINICAL INDICATION: pain TECHNIQUE: Multiplanar and multisequence MR images of the cervical spine without intravenous contrast were performed. COMPARISON: X-ray 03/19/2023. FINDINGS: VERTEBRAE: Unremarkable. Normal vertebral bodies and posterior elements. Normal alignment. Normal craniocervical junction and cervicothoracic junction. No spondylolisthesis. There is preservation of the normal cervical lordosis. SPINAL CORD: Unremarkable in signal and morphology. SOFT TISSUES: Unremarkable. No prevertebral soft tissue swelling. LYMPH NODES: Unremarkable. There is no cervical adenopathy. DISCS/SPINAL CANAL/NEURAL FORAMINA: C2-3: Normal disc height and morphology. Normal central canal. Foramina are patent. C3-4: Normal disc height and morphology. Normal central canal. Severe left foraminal stenosis due to uncinate and facet hypertrophy. C4-5: Normal disc height and morphology. Normal central canal. Severe left foraminal stenosis due to uncinate and facet hypertrophy. C5-6: Normal disc height and morphology. Normal central canal. Mild left foraminal encroachment due to facet hypertrophy. C6-7: Normal disc height and morphology. Normal central canal. Foramina are patent. C7-T1: Normal disc height and morphology. Normal central canal. Foramina are patent. MRI/Spine Cervical (Routine) IMPRESSION: No compressive disc disease or canal stenosis. Multilevel foraminal stenosis, greatest at C3-4 and C4-5. Electronically Signed: Jacklyn Greer MD at 17:45 EST Reading Location ID and State: [id number] / Tel , Service support ,
== END | disposition home or self-care (01) ==
PROVIDERS: PCP Internal Medicine; Referring Provider Orthopaedic Surgery; Visit Provider Orthopaedic Surgery
DX: M54.2 Cervicalgia (principal)
CPT/HCPCS: 72141

== ENCOUNTER → 2024-02-11 | Outpatient (CLI) | payer MEDICARE, SELFPAY ==
[2024-02-11 13:42] LABS: Amphetamine Urine VISTA NEGATIVE (<1000 ng/mL); Barbiturate Urine VISTA NEGATIVE (< 200 ng/mL); Benzodiazepine Urine VISTA NEGATIVE (< 200 ng/mL); Cocaine Urine VISTA NEGATIVE (< 300 ng/mL); Ecstacy Urine VISTA NEGATIVE (< 500 ng/mL); Methadone Urine VISTA NEGATIVE (< 300 ng/mL); PCP Urine VISTA NEGATIVE (< 25 ng/mL); THC Urine VISTA NEGATIVE (< 50 ng/mL); Vista UDS pH Range 5
== END | disposition home or self-care (01) ==
PROVIDERS: PCP Internal Medicine; Referring Provider Anesthesiology Pain Medicine; Visit Provider Anesthesiology Pain Medicine
DX: F11.20 Opioid dependence, uncomplicated (principal)
CPT/HCPCS: 80307

== ENCOUNTER → 2025-03-10 | Outpatient (CLI) | payer MEDICARE, SELFPAY ==
--- NOTE | 2025-03-10 10:25 | RAD_ITS ---
PROCEDURE: CERV SPINE 2 OR 3 VIEWS 03/10/2025 REASON FOR EXAM: SPONDYLOSIS WITHOUT MYELOPATHY OR RADICULOPATHY, CERVICAL REGION TECHNIQUE: Procedure Code: RADSPCL Modality: DX Procedure: CERV SPINE 2 OR 3 VIEWS COMPARISON: 03/19/2023. FINDINGS: No evidence of acute fracture or dislocation. Vertebral body heights are maintained. Up to mild disc space narrowing of the visualized cervical levels. Grade 1 anterolisthesis of C5 on C6. Osseous demineralization. RAD/Cerv Spine 2 or 3 Views IMPRESSION: Mild spondylosis. Spondylolisthesis. Reading Location: [id number]
== END | disposition home or self-care (01) ==
LOC: RAD 10:17
PROVIDERS: PCP Internal Medicine; Referring Provider Anesthesiology Pain Medicine; Visit Provider Anesthesiology Pain Medicine
DX: M47.812 Spondylosis without myelopathy or radiculopathy, cervical region (principal)
CPT/HCPCS: 72040